=== PATIENT | female | born 1985 | race Caucasian/White ===

== ENCOUNTER 2025-04-21 21:51 | Emergency (ER) | payer BC, SELFPAY ==
[2025-04-21 22:02] VITALS: BP 116/80; PULSE 68; RESP 18; TEMP 36.6; O2SAT 98; BMI 21.9
--- NOTE | 2025-04-21 22:31 | W.ED.HA ---
HPI - Headache General: Chief Complaint: Headache Stated Complaint: Vision Blurring, Head Plugged up Time Seen by Provider: 04/21/25 21:56 History of Present Illness: 40-year-old female presents emergency room complaining of sinus pressure and pain blurry vision some neck pain she was started on doxycycline initially seemed worse and she was seen at a local ER near where she lives somewhere in [place] was given some steroids and Toradol she also had a headache with that she is able to have a headache now. She states that symptoms are where she was tested for flu and COVID along the line of this as well was also negative. Associated symptoms: Deny chest pain, fever(s) or rash Related Data Previous Rx's ?Medication ?Instructions ?Recorded cefdinir 300 mg capsule 300 mg PO BID 10 days #20 caps 04/22/25 oxymetazoline 0.05 % nasal spray 2 spray intranasal BID PRN nasal 04/22/25 (12 Hour Nasal Relief [place]) congestion 3 days #30 mL prednisone 20 mg tablet 20 mg PO TID #15 tabs 04/22/25 pseudoephedrine HCl 120 mg 120 mg PO Q12H PRN nasal 04/22/25 tablet,extended release congestion #20 tabs Allergies Allergy/AdvReac Type Severity Reaction Status Date / Time amoxicillin Allergy ALGY-Hives Verified 04/21/25 22:09 clavulanic acid (From Allergy ALGY-Rash Verified 04/21/25 22:09 Augmentin) erythromycin base Allergy ALGY-Hives Verified 04/21/25 22:09 Penicillins Allergy ALGY-Hives Verified 04/21/25 22:09 Review of Systems Const: Denies: fever(s) or chills Card: Denies: chest pain Resp: Denies: dyspnea GI: Denies: abdominal pain : Denies: dysuria, urinary frequency or urinary urgency Musc: Denies: neck pain or back pain Skin/Breast: Denies: rash Physical Exam Const: COMMON NORMALS: no acute distress GENERAL APPEARANCE: cooperative and comfortable ORIENTATION/CONSCIOUSNESS: Yes awake, Yes oriented to person, Yes oriented to place and Yes oriented to time HENMT: COMMON NORMALS: normocephalic, atraumatic and hearing grossly normal bilaterally HEAD & SCALP: normocephalic and atraumatic Neck/C-Spine: OTHER: No nuchal rigidity. No meningeal signs. Resp: COMMON NORMALS: normal respiratory effort, No retractions, No use of accessory muscles and clear to auscultation bilaterally AUSCULTATION: clear to auscultation bilaterally Cardio: COMMON NORMALS: regular rate, regular rhythm and No murmurs present (Cardio) RATE: regular rate RHYTHM: regular rhythm GI: COMMON NORMALS: Soft to palpation and No hepatosplenomegaly present AUSCULTATION: Yes normoactive bowel sounds PALPATION: Yes Soft to palpation, No Tenderness to palpation present (GI), No Guarding due to palpation present (GI) and Yes No hepatosplenomegaly present Extremity: COMMON NORMALS: normal to inspection, capillary refill normal, no clubbing, cyanosis or edema, no calf tenderness and no pedal edema Neuro: SENSORIUM/ORIENTATION: Yes oriented to person, Yes oriented to place and Yes oriented to time Skin: COMMON NORMALS: no rashes or lesions noted GENERAL SKIN EXAM: no rashes or lesions noted Course Vital Signs: Vital signs: Vital Signs Temperature 97.9 F 04/21/25 22:02 Pulse Rate 60 04/22/25 01:10 Respiratory Rate 15 04/22/25 00:00 Blood Pressure 106/73 04/22/25 01:10 Pulse Oximetry 98 04/22/25 01:10 Oxygen Delivery Me thod Room Air 04/21/25 23:13 MDM - Headache Medical Decision Making CT negative no meningeal symptoms on exam. Will change her from doxycycline to cefdinir 300 mg twice a day for 10 days additionally will have her use oxymetazoline and pseudoephedrine and put her on a steroid taper she is given a gram of Rocephin this evening as well as IV Solu-Medrol. CT head was negative. Repeat exam prior to discharge no focal neurologic symptoms findings noted. Lab Data 04/21/25 22:36 04/21/25 22:[address] 04/21/25 22:32 IMPRESSION: No acute intracranial abnormality. Laboratory Results WBC 11.56 10^3/uL (3.29-11.43) H 04/21/25 22:36 RBC 4.23 10^6/uL (3.85-5.65) 04/21/25 22:36 Hgb 12.40 g/dL (11.27-16.99) 04/21/25 22:36 Hct 38.1 % (36-47) 04/21/25 22:36 MCV 90.1 fl (85-98) 04/21/25 22:36 MCH 29.3 pg (27-33) 04/21/25 22:36 MCHC 32.5 g/dL (30-55) 04/21/25 22:36 RDW 13.2 % (12.1-15.1) 04/21/25 22:36 Plt Count 277 10^3/cmm (157-399) 04/21/25 22:36 MPV 10.6 fL (7.4-10.4) H 04/21/25 22:36 Neut % (Auto) 63.0 % 04/21/25 22:36 Lymph % (Auto) 28.8 % 04/21/25 22:36 [place] % (Auto) 6.5 % 04/21/25 22:36 Eos % (Auto) 1.0 % 04/21/25 22:36 Baso % (Auto) 0.3 % 04/21/25 22:36 Neut # (Auto) 7.28 10^3/uL (1.8-7.7) 04/21/25 22:36 Lymph # (Auto) 3.3 10^3/uL (0.8-4.8) 04/21/25 22:36 [place] # (Auto) 0.8 10^3/uL (0.2-0.9) 04/21/25 22:36 Eos # (Auto) 0.1 10^3/uL (0.0-0.8) 04/21/25 22:36 Baso # (Auto) 0.0 10^3/uL (0.0-0.1) 04/21/25 22:36 Nucleated RBC % (auto) 0 % 04/21/25:36 Nucleated RBCs # 0.0 /100WBC 04/21/25 22:36 Sodium 140 mmol/L (136-145) 04/21/25 22:36 Potassium 3.8 mmol/L (3.5-5.1) 04/21/25 22:36 Chloride 104 mmol/L (98-107) 04/21/25 22:36 Carbon Dioxide 24 mmol/L (22-29) 04/21/25 22:36 Anion Gap 15.8 (5-19) 04/21/25 22:36 BUN 17 mg/dL (6-20) 04/21/25 22:36 Creatinine 0.7 mg/dL (0.5-0.9) 04/21/25 22:36 GFR Calculation 92.2 mL/min (90-130) 04/21/25 22:36 Glucose 83 mg/dL (65-115) 04/21/25 22:36 Calculated Osmolality 291 mOsm/kg (285-295) 04/21/25 22:36 Calcium 9.2 mg/dL (8.5-10.5) 04/21/25 22:36 Total Bilirubin 0.3 mg/dL (0.15-1.2) 04/21/25 22:36 AST 13 U/L (0-32) 04/21/25 22:36 ALT 8 U/L (0-33) 04/21/25 22:36 Alkaline Phosphatase 55 U/L (35-105) 04/21/25 22:36 Total Protein 7.4 g/dL (6.6-8.7) 04/21/25 22:36 Albumin 4.3 g/dL (3.5-5.2) 04/21/25 22:36 Globulin 3.1 g/dL (1.3-4.6) 04/21/25 22:36 All radiology interpretation(s) finalized by discharge Discharge Plan Discharge Patient Disposition: Home Clinical Impression: Sinusitis Condition: Stable Prescriptions: New cefdinir 300 mg capsule 300 mg PO BID 10 Days Qty: 20 0RF prednisone 20 mg tablet 20 mg PO TID Qty: 15 0RF Rx Instructions: 1 p.o. 3 times daily x3 days, 1 p.o. twice daily x2 days, 1 p.o. daily x2 days pseudoephedrine HCl 120 mg tablet extended release 120 mg PO Q12H PRN (Reason: nasal congestion) Qty: 20 0RF oxymetazoline [12 Hour Nasal Relief [place]] 0.05 % spray,non-aerosol 2 spray intranasal BID PRN (Reason: nasal congestion) 3 Days Qty: 30 0RF Discharge Orders: Discharge ED (Routine); Ordered 04/22/25 Ordered By: Ángel Snowden Referrals: Maddy Kent APRN [Primary Care Provider] Discharge Diet: Usual diet Discharge Activity: Increase activity as tolerated Patient Instructions: Sinusitis (ED), Opioid Safety, Pain Management, Patient Portal & Lizette Instructions Activity Restrictions/Additional Instructions: [email or web address]. It is very important that you follow up as instructed or that you return to the Emergency Department should you have concerns or if your condition changes or worsens in any way. Emergency department visits are focused on emergent conditions, in some cases you may require further evaluation on an outpatient basis. (Please note that included in your discharge packet is information concerning opioid safety and pain management. This information is given to all patients were discharged from the ER regardless of their discharge diagnosis or the medicines they usually take or are prescribed.) Print Language: Mauritanian Coding Level of Care Code ED Grill Cook for Arun Hall
--- NOTE | 2025-04-21 22:32 | CTR_ITS ---
PROCEDURE INFORMATION: Exam: CT Head Without Contrast Exam date and time: 04/21/2025 11:16 PM Age: 40 years old Clinical indication: Pain; Headache and other: Pressure; Additional info: Vision changes TECHNIQUE: Imaging protocol: Computed tomography of the head without contrast. Radiation optimization: All CT scans at this facility use at least one of these dose optimization techniques: automated exposure control; mA and/or kV adjustment per patient size (includes targeted exams where dose is matched to clinical indication); or iterative reconstruction. COMPARISON: No relevant prior studies available. RADIATION DOSE METRICS: Total DLP (mGy-cm): 1241.38 FINDINGS: Brain: Normal. No hemorrhage. Unremarkable white matter. No mass effect. Cerebral ventricles: No ventriculomegaly. Paranasal sinuses: Visualized sinuses are unremarkable. No fluid levels. Mastoid air cells: Visualized mastoid air cells are well aerated. Bones: Unremarkable. No acute fracture. Soft tissues: Unremarkable. CT/CT head wo con* [id number] IMPRESSION: No acute intracranial abnormality.
[2025-04-21 22:43] VITALS: BP 123/83; PULSE 63; RESP 17; O2SAT 97
[2025-04-21 22:47] LABS: Hematocrit 38.1 % (36-47); Hemoglobin 12.40 g/dL (11.27-16.99); Mean Corpuscular HGB Conc 32.5 g/dL (30-55); Mean Corpuscular Hemoglobin 29.3 pg (27-33); Mean Corpuscular Volume 90.1 fl (85-98); Nucleated Red Blood Cells % 0 %; Platelet Count 277 10^3/cmm (157-399); Red Blood Count 4.23 10^6/uL (3.85-5.65); White Blood Count 11.56 10^3/uL (3.29-11.43)
[2025-04-21 23:01] LABS: Alanine Aminotransferase 8 U/L (0-33); Albumin Level 4.3 g/dL (3.5-5.2); Alkaline Phosphatase 55 U/L (35-105); Anion Gap 15.8 (5-19); Aspartate Amino Transferase 13 U/L (0-32); Blood Urea Nitrogen 17 mg/dL (6-20); Calcium 9.2 mg/dL (8.5-10.5); Carbon Dioxide 24 mmol/L (22-29); Chloride 104 mmol/L (98-107); Creatinine Clr Calc Pharmacy 104.1209; Globulin 3.1 g/dL (1.3-4.6); Glucose 83 mg/dL (65-115); Osmolality Calculated 291 mOsm/kg (285-295); Potassium 3.8 mmol/L (3.5-5.1); Sodium 140 mmol/L (136-145); Total Protein 7.4 g/dL (6.6-8.7)
[2025-04-21 23:13] VITALS: PULSE 69; RESP 15; O2SAT 96
[2025-04-21 23:30] VITALS: PULSE 62; RESP 16; O2SAT 98
[2025-04-22] VITALS: PULSE 61; RESP 15; O2SAT 99
[2025-04-22 00:30] VITALS: BP 106/72; PULSE 89; O2SAT 97
[2025-04-22] MEDS: methylPREDNISolone sod succ 125 mg/2 mL INJ IVP (00:42)
[2025-04-22] MEDS: cefTRIAXone 1,000 mg SDV 1000 MG IVP (00:50)
[2025-04-22 01:10] VITALS: BP 106/73; PULSE 60; O2SAT 98
== END 2025-04-22 01:12 | disposition home or self-care (01) ==
PROVIDERS: Emergency Provider Family Medicine; PCP Family Medicine
DX: J32.9 Chronic sinusitis, unspecified (principal)
CPT/HCPCS: 70450; 80053; 85025; 96374; 96375; 99285; J0696; J1885; J2919; J9999